=== PATIENT | female | born 1970 | race Caucasian/White ===

== ENCOUNTER → 2024-01-23 17:06 | Outpatient (REF) | payer OTHER, SELFPAY | LOC: WDC 17:06 | PROVIDERS: ATTENDING PHYSICIAN Obstetrics & Gynecology Gynecology; FAMILY PHYSICIAN Internal Medicine | DX: Z12.31 Encounter for screening mammogram for malignant neoplasm of breast (principal) | CPT/HCPCS: 77063; 77067 ==

== ENCOUNTER → 2024-05-12 18:29 | Outpatient (REF) | payer OTHER, SELFPAY | LOC: PAVMRI 18:29 | PROVIDERS: ATTENDING PHYSICIAN Chiropractor; FAMILY PHYSICIAN Internal Medicine | DX: M51.16 Intervertebral disc disorders with radiculopathy, lumbar region (principal); M99.03 Segmental and somatic dysfunction of lumbar region | CPT/HCPCS: 72148 ==

== ENCOUNTER → 2025-01-25 19:05 | Outpatient (REF) | payer OTHER, SELFPAY | LOC: WDC 19:05 | PROVIDERS: ATTENDING PHYSICIAN Obstetrics & Gynecology Gynecology; FAMILY PHYSICIAN Internal Medicine | DX: Z12.31 Encounter for screening mammogram for malignant neoplasm of breast (principal) | CPT/HCPCS: 77063; 77067 ==